=== PATIENT | male | born 1955 | race Caucasian/White ===

== ENCOUNTER → 2019-03-25 | Outpatient (CLI) | payer OTHER ==
[2019-03-25 12:46] LABS: ABSOLUTE LYMPHOCYTES 0.6 thou/uL (0.8-5.3); ABSOLUTE MONOCYTES 0.6 thou/uL (0.0-1.2); ABSOLUTE NEUTROPHILS 6.1 thou/uL (1.6-8.1); BASOPHILS 0.4 %; EOSINOPHILS 0.4 %; HEMATOCRIT 44.8 % (42.0-52.0); HEMOGLOBIN 14.9 gm/dL (14.0-18.0); LYMPHOCYTES 7.8 %; MCHC 33.4 g/dL (28.0-37.0); MCV 80.9 fL (80.0-100.0); MONOCYTES 7.7 %; MPV 9.4 fl. (7.2-11.1); NUCLEATED RBCS 0 /100WBC; PLATELET COUNT* 135 thou/uL (150-400); POLYS 83.7 %; RBC 5.53 mil/uL (4.50-6.00); RDW-CV 15.7 % (10.5-14.5); WBC 7.3 thou/uL (4.0-11.0)
[2019-03-25 13:02] LABS: ALBUMIN 3.5 g/dL (3.4-5.0); CALCIUM 8.7 mg/dL (8.5-10.1); CREATININE 1.1 mg/dL (0.6-1.3); DIRECT BILIRUBIN 0.1 mg/dL (<0.1-0.3); POTASSIUM 3.9 mmol/L (3.5-5.1); TOTAL BILIRUBIN 0.6 mg/dL (<0.1-1.0)
[2019-03-28 13:46] LABS: HEPATITIS B SURFACE AG Negative (Negative)
== END ==
LOC: M.CT 12:00
PROVIDERS: Registered Nurse Diabetes Educator
DX: K57.30 Diverticulosis of large intestine without perforation or abscess without bleeding (principal); K76.9 Liver disease, unspecified; R19.7 Diarrhea, unspecified; R11.2 Nausea with vomiting, unspecified; R10.30 Lower abdominal pain, unspecified

== ENCOUNTER → 2019-03-28 | Outpatient (CLI) | payer OTHER | LOC: M.LAB 18:23 | DX: R19.7 Diarrhea, unspecified (principal); R10.30 Lower abdominal pain, unspecified; R11.2 Nausea with vomiting, unspecified ==